=== PATIENT | male | born 1935 | race Caucasian/White ===

== ENCOUNTER 2021-12-01 11:52 | Day surgery (SDC) | payer MEDICARE, SELFPAY ==
--- NOTE | 2021-11-28 14:51 | P.CONAN_ITS ---
Documented by User: Edwige Gong NP 11/28/21 15:02 HPI - Anesthesia Eval Consult details Narrative: 86yo M for Kyphoplasty s/p fall 08/2021 [facility] Past Medical History Medical History (Updated 11/28/21 @ 14:57 by Edwige Gong NP) Actinic keratosis Arthritis Asthma Atrial fibrillation Basal cell carcinoma BPH (benign prostatic hyperplasia) CKD (chronic kidney disease) stage 3, GFR 30-59 ml/min COPD (chronic obstructive pulmonary disease) Edema Glaucoma Gout Heart murmur HTN (hypertension) Hypothyroid Iron deficiency anemia Lymphocytopenia Microcytic anemia Migraine Osteoporosis Spinal stenosis Surgical History Surgical History (Updated 11/28/21 @ 14:57 by Edwige Gong NP) H/O Billroth I operation H/O cataract extraction H/O endoscopy H/O spinal fusion S/P partial gastrectomy S/P rotator cuff repair S/P trigger finger release Social History Social History Advance Directives: No Advance Directives Information Provided: Yes Meds Allergies Allergy/AdvReac Type Severity Reaction Status Date / Time acetaminophen Allergy Unknown Unknown Verified 11/28/21 14:51 adhesive tape Allergy Unknown Unknown Verified 11/28/21 14:51 amitriptyline Allergy Unknown Unknown Verified 11/28/21 14:51 avocado Allergy Unknown Unknown Verified 11/28/21 14:51 carvedilol Allergy Unknown Unknown Verified 11/28/21 14:51 chlordiazepoxide Allergy Unknown Unknown Verified 11/28/21 14:51 [From Librium] eggplant Allergy Unknown Unknown Verified 11/28/21 14:51 gabapentin Allergy Unknown Unknown Verified 11/28/21 14:51 Latex, Natural Rubber Allergy Unknown Unknown Verified 11/28/21 14:51 silicone Allergy Unknown Unknown Verified 11/28/21 14:51 lisinopril AdvReac Unknown Unknown Verified 11/28/21 14:51 Home Medications Medication Instructions Recorded Confirmed Last Taken Type allopurinol 300 mg tablet 1 tab PO DAILY 11/28/21 11/28/21 Unknown History calcitonin (salmon) 200 intranasal 11/28/21 11/28/21 Unknown History unit/actuation nasal spray finasteride 5 mg tablet 1 tab PO QAM 11/28/21 11/28/21 Unknown History furosemide 20 mg tablet 1 tab PO DAILY 11/28/21 11/28/21 Unknown History levothyroxine 50 mcg tablet 1 tab PO QAM 11/28/21 11/28/21 Unknown History lidocaine 4 % topical patch patch topical 11/28/21 11/28/21 Unknown History (Lidocaine Pain Relief) oxycodone 10 mg tablet 1 - 1.5 tab PO Q4H PRN Pain 11/28/21 11/28/21 Unknown History tamsulosin 0.4 mg capsule 1 cap PO DAILY 11/28/21 11/28/21 Unknown History tizanidine 4 mg tablet 1 tab PO 11/28/21 11/28/21 Unknown History warfarin 3 mg tablet 1 tab PO DAILY 11/28/21 11/28/21 Unknown History Exam Exam Date and Time: November 28, 2021 1451 Narrative Narrative: MRI 09/2021 Acute appearing moderate/severe compression fx of L1. No progression of height loss of previously seen fx at T12 and L2 Postoperative and degenerative changes as described Assessment and Plan Assessment Anesthesia Assessment: Chart Reviewed Documented by User: Elvis Mei MD 12/01/21 17:46 HPI - Anesthesia Eval Consult details Narrative: 86yo M for Kyphoplasty s/p fall 08/2021 Aortic stenosis mild to moderate , pulmonary HTN , droped foot left , PFO Held warfarin as per PCP . Patient optimized as per PCP [facility] Past Medical History Medical History (Updated 11/28/21 @ 14:57 by Edwige Gong NP) Actinic keratosis Arthritis Asthma Atrial fibrillation Basal cell carcinoma BPH (benign prostatic hyperplasia) CKD (chronic kidney disease) stage 3, GFR 30-59 ml/min COPD (chronic obstructive pulmonary disease) Edema Glaucoma Gout Heart murmur HTN (hypertension) Hypothyroid Iron deficiency anemia Lymphocytopenia Microcytic anemia Migraine Osteoporosis Spinal stenosis Family History Family history of problems with anesthesia: No Surgical History Surgical History (Updated 11/28/21 @ 14:57 by Edwige Gong NP) H/O Billroth I operation H/O cataract extraction H/O endoscopy H/O spinal fusion S/P partial gastrectomy S/P rotator cuff repair S/P trigger finger release History of Problems with Anesthesia: No Social History Social History Advance Directives: No Advance Directives Information Provided: Yes Meds Allergies Allergy/AdvReac Type Severity Reaction Status Date / Time acetaminophen Allergy Unknown Unknown Verified 11/28/21 14:51 adhesive tape Allergy Unknown Unknown Verified 11/28/21 14:51 amitriptyline Allergy Unknown Unknown Verified 11/28/21 14:51 avocado Allergy Unknown Unknown Verified 11/28/21 14:51 carvedilol Allergy Unknown Unknown Verified 11/28/21 14:51 chlordiazepoxide Allergy Unknown Unknown Verified 11/28/21 14:51 [From Librium] eggplant Allergy Unknown Unknown Verified 11/28/21 14:51 gabapentin Allergy Unknown Unknown Verified 11/28/21 14:51 Latex, Natural Rubber Allergy Unknown Unknown Verified 11/28/21 14:51 silicone Allergy Unknown Unknown Verified 11/28/21 14:51 lisinopril AdvReac Unknown Unknown Verified 11/28/21 14:51 Home Medications Medication Instructions Recorded Confirmed Last Taken Type allopurinol 300 mg tablet 1 tab PO DAILY 11/28/21 11/28/21 Unknown History calcitonin (salmon) 200 intranasal 11/28/21 11/28/21 Unknown History unit/actuation nasal spray finasteride 5 mg tablet 1 tab PO QAM 11/28/21 11/28/21 Unknown History furosemide 20 mg tablet 1 tab PO DAILY 11/28/21 11/28/21 Unknown History levothyroxine 50 mcg tablet 1 tab PO QAM 11/28/21 11/28/21 Unknown History lidocaine 4 % topical patch patch topical 11/28/21 11/28/21 Unknown History (Lidocaine Pain Relief) oxycodone 10 mg tablet 1 - 1.5 tab PO Q4H PRN Pain 11/28/21 11/28/21 Unknown History tamsulosin 0.4 mg capsule 1 cap PO DAILY 11/28/21 11/28/21 Unknown History tizanidine 4 mg tablet 1 tab PO 11/28/21 11/28/21 Unknown History warfarin 3 mg tablet 1 tab PO DAILY 11/28/21 11/28/21 Unknown History Exam Airway Mallampati Class: IV TM Dist: >3cm Neck ROM: Poor Partial: Upper Loose/Missing/Broken Teeth: Yes Heart: Irregular Lungs: b/l breath sounds Assessment and Plan Assessment Anesthesia Assessment: Anesthesia Plan Discussed Final Anesthetic Review Family History of Problems with Anesthesia: No History of Problems with Anesthesia: No NPO: Yes ASA Class: IV Final Preanesthetic Review: Meds/Allgs Chart Reviewed, Consent Obtained/Reviewed and Anes Risks/Benef Reviewed Patient Risk: High Procedure Risk: Intermediate Anesthetic Plan Anesthetic Plan: MAC: Disposition: Standard PACU
[2021-12-01] VITALS (8 sets, daily range): BP systolic 110–132; BP diastolic 62–80; PULSE 67–109; RESP 14–16; TEMP 36.7; O2SAT 96–98; BMI 18.3
--- NOTE | 2021-12-01 | ECG_ITS ---
Test Reason : preop Blood Pressure : / mmHG Vent. Rate : 091 BPM Atrial Rate : 000 BPM P-R Int : 000 ms QRS Dur : 092 ms QT Int : 368 ms P-R-T Axes : 000 -21 079 degrees QTc Int : 452 ms Atrial fibrillation Minimal voltage criteria for LVH, may be normal variant ( R in aVL ) Cannot rule out Anterior infarct , age undetermined Abnormal ECG No previous ECGs available Clinical Correlation Advised Referred By: Edwige Gong Electronically Signed By:LEAH PANCHAL
--- NOTE | ~2021-12-01 | CT_ITS ---
EXAMINATION: CT LUMBAR SPINE WITHOUT CONTRAST CT LUMBAR SPINE POST VERTEBROPLASTY. CLINICAL INFORMATION: L1 fracture. Post vertebroplasty. COMPARISON: Lumbar spine MRI October 06, 2021. TECHNIQUE: CT of the lumbar spine collimated down to the thoracolumbar junction was performed prior to and following kyphoplasty. Multiplanar reformats were rendered and reviewed. This CT examination was performed using dose optimization techniques as appropriate, variously including the following: *Automated exposure control *Adjustment of mA and/or kV according to patient size (this includes techniques or standardized protocols for targeted exams where dose is matched to indication/reason for exam; i.e. extremities or head) *Use of iterative reconstruction technique DLP: 213 mGy-cm FINDINGS: The preprocedural images demonstrate a severe compression fracture at T12 and L1 with greater than 50% height loss at both levels and some comminution at the L1 fracture. There is no significant retropulsion. There is also a severe compression fracture at L2 which is status post vertebral augmentation. On the postprocedure images, cement is seen within the L1 vertebral body. There is no evidence of extraosseous cement. There is partially visualized fusion construct with the superior screw noted in the L3 vertebral body. There are atheromatous changes within the abdominal aorta and its branch vessels. Multiple renal cysts are noted. Hyperdense lesions are seen within the right kidney the largest measuring 1.2 cm. There is partially visualized dilatation of the common bile duct. The heart is only partially imaged but appears enlarged. Atelectatic changes are seen within the lower lungs. CT/CT lumbar spine post vert IMPRESSION: Postprocedural changes related to L1 vertebral augmentation. No evidence of extraosseous cement. Compression fractures redemonstrated at T12, L1, and L2. Incidentally noted hyperdense lesions within the right kidney which could represent proteinaceous or hemorrhagic cyst. Common bile duct dilatation is noted, incompletely characterized. Further evaluation right upper quadrant ultrasound could be performed.
--- NOTE | ~2021-12-01 | IR_ITS ---
EXAMINATION: IR LUMBAR VERTEBROPLASTY CLINICAL INFORMATION: Severe osteoporosis, scoliosis and compression fracture deformity T12 and L1 vertebrae. COMPARISON: Recent bone scan 10/13/2021 revealed acute compression fracture L1 vertebra. TECHNIQUE: Following explaining fluoroscopy-guided right L1 transpedicular approach kyphoplasty procedure, benefits and risks in detail to the patient and patient's family, a written consent was obtained from the patient. Preliminary CT imaging was obtained just through the T12, L1, L2 vertebrae. Patient was then positioned semiprone left down right upper on fluoroscopy table and skin site over the L1 vertebra was cleaned and draped in the usual sterile manner with 2% chlorhexidine solution. 1% lidocaine was inserted at the skin overlying the right L1 pedicle. A spinal needle was then advanced from the skin to the level of the right pedicle and 0.25% Marcaine was administered. Through a small skin incision, a 10-gauge Kyphon needle was advanced from the skin to the pedicle and through the pedicle into the midline L1 vertebra. A handheld was advanced through the pedicle and a track created. High-tensile balloons was then inserted and inflated 350 PSI for 5 minutes. The balloon was removed and freshly prepared polymethylmetaacrylate(PMMA) was injected through the right needle. After achieving an adequate amount of cement, the needle was removed and complete hemostasis was achieved at the puncture site. Pedicle needle could not be administered due to patient positioning. Sedation was provided by anesthesia department. FINDINGS: On prone images obtained, there are bilateral pedicular screws at L5, L4 and L3 vertebrae with interconnecting rods. There is cement visualized at L2 vertebra. There is a severe compression fracture with sclerosis at the L1 vertebra. Mild compression deformity of T12 vertebra is noted. On bone scan, there is significant increased activity seen within the L1 vertebra. No activity was seen in the T12 vertebra. FLUOROSCOPY TIME: 11 minutes. DOSE AREA PRODUCT: 3544 cGy-cm2 (microgray-meter squared). IR/IR kyphoplasty lumbar IMPRESSION: Successful unilateral right pedicle approach L1 kyphoplasty performed. There is cement progression from the right side across the midline to the left. Left pedicle approach was not performed as patient was lying in left semiprone position and left pedicle was not accessible.
--- NOTE | ~2021-12-01 | CT_ITS ---
EXAMINATION: CT LUMBAR SPINE WITHOUT CONTRAST CT LUMBAR SPINE POST VERTEBROPLASTY. CLINICAL INFORMATION: L1 fracture. Post vertebroplasty. COMPARISON: Lumbar spine MRI October 06, 2021. TECHNIQUE: CT of the lumbar spine collimated down to the thoracolumbar junction was performed prior to and following kyphoplasty. Multiplanar reformats were rendered and reviewed. This CT examination was performed using dose optimization techniques as appropriate, variously including the following: *Automated exposure control *Adjustment of mA and/or kV according to patient size (this includes techniques or standardized protocols for targeted exams where dose is matched to indication/reason for exam; i.e. extremities or head) *Use of iterative reconstruction technique DLP: 213 mGy-cm FINDINGS: The preprocedural images demonstrate a severe compression fracture at T12 and L1 with greater than 50% height loss at both levels and some comminution at the L1 fracture. There is no significant retropulsion. There is also a severe compression fracture at L2 which is status post vertebral augmentation. On the postprocedure images, cement is seen within the L1 vertebral body. There is no evidence of extraosseous cement. There is partially visualized fusion construct with the superior screw noted in the L3 vertebral body. There are atheromatous changes within the abdominal aorta and its branch vessels. Multiple renal cysts are noted. Hyperdense lesions are seen within the right kidney the largest measuring 1.2 cm. There is partially visualized dilatation of the common bile duct. The heart is only partially imaged but appears enlarged. Atelectatic changes are seen within the lower lungs. CT/CT lumbar spine wo IV con IMPRESSION: Postprocedural changes related to L1 vertebral augmentation. No evidence of extraosseous cement. Compression fractures redemonstrated at T12, L1, and L2. Incidentally noted hyperdense lesions within the right kidney which could represent proteinaceous or hemorrhagic cyst. Common bile duct dilatation is noted, incompletely characterized. Further evaluation right upper quadrant ultrasound could be performed.
[2021-12-01 12:36] LABS: Hematocrit 35.3 % (42.0-52.0); Mean Corpuscular HGB Conc 31.2 g/dl (31.0-36.0); Mean Corpuscular Hemoglobin 31.1 pg (27.0-33.0); Mean Corpuscular Volume 99.7 fL (80.0-98.0); Mean Platelet Volume 9.7 fL (9.4-12.4); Platelet Count 281 X10*3/uL (160-400); Red Blood Count 3.54 X10*6/uL (4.60-5.80); Red Cell Distribution Width 15.5 % (11.0-16.0); White Blood Count 3.7 X10*3/uL (4.8-10.8)
[2021-12-01] MEDS: Lactated Ringers 1,000 ML 50 ML IVCONT (12:44)
[2021-12-01 12:49] LABS: INTERNATIONAL NORM RATIO 1.4 (0.9-1.1); Prothrombin Time 16.5 SEC (10.0-13.1)
[2021-12-01 12:52] LABS: Anion Gap 15 (12-20); Blood Urea Nitrogen 36 mg/dL (9-16); Calcium 10.1 mg/dL (8.4-10.2); Carbon Dioxide 28 mmol/L (22-29); Chloride 101 mmol/L (96-108); Creatinine Clr Calc Pharmacy 33.6; Estimated Glomerular Filt Rate 54; Glucose Fasting 100 mg/dL (60-99); Potassium 4.3 mmol/L (3.3-5.1); Sodium 140 mmol/L (135-145)
== END 2021-12-01 20:10 | disposition home or self-care (01) ==
PROVIDERS: Nurse Practitioner; Radiology Diagnostic Radiology; PCP Nurse Practitioner Family; Visit Provider Nurse Practitioner Family
DX: M80.88XA Other osteoporosis with current pathological fracture, vertebra(e), initial encounter for fracture (principal); I48.19 Other persistent atrial fibrillation; I12.9 Hypertensive chronic kidney disease with stage 1 through stage 4 chronic kidney disease, or unspecified chronic kidney disease; N18.30 Chronic kidney disease, stage 3 unspecified; Z79.01 Long term (current) use of anticoagulants; Z79.899 Other long term (current) drug therapy; Z88.8 Allergy status to other drugs, medicaments and biological substances; Z91.040 Latex allergy status; Z98.84 Bariatric surgery status
CPT/HCPCS: 22514; 36415; 72131; 80048; 85027; 85610; 93005; J0690; J2250; J2370; J3010